=== PATIENT | male | born 1955 | race Caucasian/White ===

== ENCOUNTER 2019-02-07 17:35 | Emergency (ER) | payer OTHER ==
[~2019-02-07] VITALS: Ht 177.8 cm; Wt 87.4 kg
[2019-02-07 17:36] VITALS: BP 168/94
--- NOTE | 2019-02-07 18:23 | NUR ---
NOTIFIED BY REGISTRATION THAT PT TOLD THEM THAT THEY WILL BE LEAVING. UNABLE TO SPEAK WITH PT PRIOR TO THEM LEAVING FROM TRIAGE.
== END 2019-02-07 18:34 | disposition left against medical advice (07) ==
LOC: ED 18:28
DX: R06.02 Shortness of breath (principal); Z53.21 Procedure and treatment not carried out due to patient leaving prior to being seen by health care provider

== ENCOUNTER 2019-02-08 09:33 | Emergency (ER) | payer OTHER ==
[~2019-02-08] VITALS: Ht 177.8 cm; Wt 86.0 kg
--- NOTE | 2019-02-08 10:16 | NUR ---
QUALITY MEASUREMENT SPECIALIST: PT TO ROOM FROM [facility]REAG[facility]
--- NOTE | 2019-02-08 10:35 | NUR ---
PT REPORTS HE HAS BEEN HAVING AN ONGOING COUGH FOR 7 WEEKS. PT SAW HIS PCP ABOUT 3 WEEKS AGO AND GOT ABX. PT REPORT NO IMPROVEMENT. HE ALSO FEELS VERY WEAK AND "EXHAUSTED ALL THE TIME".
[2019-02-08 10:51] LABS: BASOPHILS # (AUTO) 0.04 x10^3/uL (0-0.1); BASOPHILS % (AUTO) 0 % (0-1); EOSINOPHILS # (AUTO) 0.22 x10^3/uL (0-0.4); EOSINOPHILS % (AUTO) 2 % (1-7); LYMPHOCYTES # (AUTO) 1.79 x10^3/uL (1-3.4); LYMPHOCYTES % (AUTO) 18 % (22-44); MD NO; MEAN CORPUSCULAR VOLUME 96.9 fL (81-97); MEAN PLATELET VOLUME 7.1 fL (7.4-10.4); MONOCYTES # (AUTO) 1.33 x10^3/uL (0.2-0.8); MONOCYTES % (AUTO) 14 % (2-9); NEUTROPHILS # (AUTO) 6.46 x10^3/uL (1.8-6.8); NEUTROPHILS % (AUTO) 66 % (42-75); PLATELET COUNT 217 x10^3/uL (130-400); RED BLOOD COUNT 5.03 x10^6/uL (4.38-5.82); RED CELL DISTRIBUTION WIDTH 13.1 % (9.4-14.8)
[2019-02-08] MEDS ORDERED: ACETAMINOPHEN 500 MG TABLET PO ONE (11:00)
[2019-02-08] MEDS ORDERED: ALBUTEROL/IPRATROPIUM 2.5MG/0.5MG, 3 ML NPPB SCH (11:00)
[2019-02-08 11:04] LABS: ALBUMIN 4.1 g/dL (3.4-5.0); ANION GAP 8 mmol/L (5-15); CALCIUM 9.1 mg/dL (8.5-10.1); CHLORIDE 103 mmol/L (98-107); CREATININE 1.23 mg/dL (0.7-1.3)
--- NOTE | 2019-02-08 11:18 | NUR ---
RT AT BEDSIDE DOING TREATMENT.
[2019-02-08] MEDS ORDERED: ALBUTEROL/IPRATROPIUM 2.5MG/0.5MG, 3 ML ONE (11:22)
[2019-02-08 12:49] VITALS: BP 145/88
== END 2019-02-08 12:50 | disposition home or self-care (01) ==
LOC: ED 11:03
DX: J98.01 Acute bronchospasm (principal); I10 Essential (primary) hypertension
CPT/HCPCS: 36415; 71046; 80048; 82040; 85025; 93005; 94640; 99284; J7512; J7620

== ENCOUNTER 2020-12-01 16:55 | Emergency (ER) | payer OTHER ==
[~2020-12-01] VITALS: Ht 170.2 cm; Wt 89.2 kg
[2020-12-01 17:22] VITALS: BP 168/99
[2020-12-01] MEDS ORDERED: METO-282 PO (18:19)
[2020-12-01] MEDS ORDERED: RIVA20TA PO (18:19)
[2020-12-01] MEDS ORDERED: HYDR25TA6 PO (18:19)
== END 2020-12-01 19:14 | disposition home or self-care (01) ==
LOC: ED 18:21
DX: S90.32XA Contusion of left foot, initial encounter (principal); X58.XXXA Exposure to other specified factors, initial encounter; Y93.89 Activity, other specified; Y92.89 Other specified places as the place of occurrence of the external cause; Y99.8 Other external cause status
CPT/HCPCS: 99283

== ENCOUNTER → 2021-03-02 | Outpatient (CLI) | payer OTHER ==
[~2021-03-02] MED LIST: HYDR25TA6 PO; METO-282 PO; RIVA20TA PO
== END | disposition home or self-care (01) ==
LOC: RAD 14:20
PROVIDERS: ATTEND Family Medicine
DX: K44.9 Diaphragmatic hernia without obstruction or gangrene (principal); K76.0 Fatty (change of) liver, not elsewhere classified; R31.9 Hematuria, unspecified
CPT/HCPCS: 74176